=== PATIENT | male | born 1975 | race African-American/Black ===

== ENCOUNTER → 2021-01-12 00:56 | Outpatient (CLI) | payer BC, SELFPAY ==
[2021-01-12 17:04] LABS: SARS-CoV-2 RNA PCR Negative
== END ==
PROVIDERS: Visit Provider Internal Medicine Gastroenterology
DX: Z01.812 Encounter for preprocedural laboratory examination (principal); Z20.822 Contact with and (suspected) exposure to COVID-19
CPT/HCPCS: C9803; U0003; U0005

== ENCOUNTER 2021-01-15 00:19 | Day surgery (SDC) | payer BC, SELFPAY ==
[2020-12-24 13:32] VITALS: BMI 25.9
[2021-01-15 09:55] VITALS: BP 162/78; PULSE 75; RESP 18; TEMP 36.5; O2SAT 100; BMI 39.4
[2021-01-15] MEDS: LACTATED RINGERS 1,000 ML 150 ML IV CONT (10:10)
--- NOTE | 2021-01-15 10:35 | WPDGICN ---
Assessment and Plan Assessment and plan (1) Rectal bleeding: Code(s): K62.5 - Hemorrhage of anus and rectum Status: Acute Assessment and Plan: Patient has a several month history of rectal bleeding bright red blood per rectum plan is for colonoscopy to assess more thoroughly. Fiber supplementation may help to minimize irritation at the hemorrhoidal plexus. Further recommendations will be given after endoscopy. GI Consult Note Consult date/time: 01/15/21 10:35 HPI: Juan M King is a 45 year old male Presents for colonoscopy. Over the last 2 months patient has noticed intermittent bright red blood per rectum. He notices this typically after morning bowel movement. He states this will occur or intermittently and not with every stool. He denies any abdominal rectal pain. He states his bowel habits tend to be regular but occasionally he will strain at stools. Denies any weight loss. His family history is noncontributory. Review of Systems Review of Systems: All systems reviewed & are unremarkable except as noted in HPI and below PMFSH Social History Social History Smoking packs per day: 0.5 Smoking cigarettes per day: 10.0 Years smoked: 15 Smoking pack-years: 7.50 Smoking status: Current every day smoker Tobacco type: cigarettes Substance use type: does not use Living arrangements: with family Spiritual care concerns: No Meds Home Medications and Allergies Home Medications Medication Instructions Recorded Confirmed Type amlodipine 10 mg PO DAILY 12/24/20 01/15/21 History atorvastatin 40 mg PO DAILY 12/24/20 01/15/21 History cetirizine 10 mg PO DAILY 12/24/20 01/15/21 History Allergies Allergy/AdvReac Type Severity Reaction Status Date / Time No Known Allergies Allergy Verified 01/15/21 09:54 Vital Signs Vital Signs - 24 hr 01/15/21 09:55 Temperature 97.7 F Pulse Rate 75 Respiratory Rate 18 Blood Pressure 162/78 H Pulse Oximetry 100 Exam Narrative: Physical exam reveals patient to be alert. Vital signs stable. HEENT exam is unremarkable. Patient is anicteric. Lungs are clear to auscultation and percussion. Heart is without murmur or extra sounds. Abdominal exam bowel sounds are present soft nontender with no organomegaly. Digital external rectal exam is normal.
--- NOTE | 2021-01-15 10:44 | WPDANESEPPF ---
Anes - Initial Pre Proc Eval Procedure: Operation Date: 01/15/21 11:15 Proposed Procedures p Colonoscopy - Chon Devi MD Date/Time: 01/15/21 10:44 Surgeon: Chon Devi MD Pre Op Diagnosis: melena Patient Data Age: 45 Gender: M Height: 1.7 m Weight: 114.4 kg Last Vital Signs Temp 36.5 C 01/15/21 09:55 Pulse 75 01/15/21 09:55 Resp 18 01/15/21 09:55 BP 162/78 H 01/15/21 09:55 Pulse Ox 100 01/15/21 09:55 Allergies Allergy/AdvReac Type Severity Reaction Status Date / Time No Known Allergies Allergy Verified 01/15/21 09:54 Home Medications Medication Instructions Recorded Confirmed Type amlodipine 10 mg PO DAILY 12/24/20 01/15/21 History atorvastatin 40 mg PO DAILY 12/24/20 01/15/21 History cetirizine 10 mg PO DAILY 12/24/20 01/15/21 History Patient hx anesthesia problems: none Family hx anesthesia problems: none Results Review: All pre-operative results and documents have been reviewed as part of the pre-operative evaluation. [facility] Past Medical History Medical History (Updated 01/15/21 @ 10:45 by Seng Dickerson MD) HTN (hypertension) Hyperlipidemia Obesity Snoring Social History Social History Smoking packs per day: 0.5 Smoking cigarettes per day: 10.0 Years smoked: 15 Smoking pack-years: 7.50 Smoking status: Current every day smoker Tobacco type: cigarettes Substance use type: does not use Living arrangements: with family Spiritual care concerns: No Anes - Eval Final PreProcedure Day of Procedure 01/15/21 10:44 Patient weight: obese Heart: regular rate and rhythm Lungs: clear to auscultation Airway: Mallampati scale class III Neurological: alert and oriented Last oral intake: >/= 8 hours ASA classification: III Emergent: no Anesthetic plan: proceed Anesthesia type and monitoring: general GIVS and standard monitoring Results Review: All pre-operative results and documents have been reviewed as part of the pre-operative evaluation. Informed Consent: The patient's anesthetic plan and its attendant risks and benefits were discussed with the patient/family/POA. Questions were solicited and answers provided to the satisfaction of the patient/family/POA.
[2021-01-15 11:08] VITALS: BP 115/64; PULSE 93; RESP 22; O2SAT 100
[2021-01-15 11:18] VITALS: BP 150/77; PULSE 81; RESP 24; O2SAT 100
[2021-01-15 11:28] VITALS: BP 143/92; PULSE 73; RESP 25; O2SAT 100
== END 2021-01-15 11:30 | disposition home or self-care (01) ==
PROVIDERS: Visit Provider Internal Medicine Gastroenterology
PROC: 0DJD8ZZ Inspection of Lower Intestinal Tract, Via Natural or Artificial Opening Endoscopic (ICD-10-PCS; CPT 45378; principal; 2021-01-15 11:15)
DX: K62.5 Hemorrhage of anus and rectum (principal); K64.8 Other hemorrhoids; F17.210 Nicotine dependence, cigarettes, uncomplicated
CPT/HCPCS: 45378; J2704; J7120